=== PATIENT | male | born 1940 | race Caucasian/White ===

== ENCOUNTER 2018-07-02 01:44 | Inpatient (IN) | payer MEDICARE, OTHER ==
[2018-07-01 13:43] LABS: INR 1.02
--- NOTE | 2018-07-01 14:40 | LEVENE H&P ---
DATE OF ADMISSION: July 02, 2018 IDENTIFICATION/CHIEF COMPLAINT The patient is a 77-year-old gentleman with a chief complaint of left knee pain. HISTORY OF PRESENT ILLNESS The patient has a longstanding history of knee arthritis progressively painful and debilitating, refractory to conservative care. Surgery is indicated to relieve symptoms after failure of nonoperative measures. PAST MEDICAL HISTORY 1. Notable for hyper cholesterolemia. 2. Hypertension controlled on medication. 3. Remote history of myocardial infarction with coronary artery disease. PAST SURGICAL HISTORY 1. Notable for oral surgery. 2. Right shoulder. 3. Lumbar surgery. 4. Coronary stent. ALLERGIES MORPHINE that leads to a rash. CURRENT MEDICATIONS 1. Baby Aspirin 81 mg p.o. q day. 2. Crestor 40 mg p.o. q day. 3. Amlodipine. 4. Benazepril 10-41 p.o. q day. 5. Carvedilol 6.25 mg p.o. b.i.d. FAMILY HISTORY Non-contributory. SOCIAL HISTORY Notable for smoking a pack a day times 40 years. He quit in 2000. He occasionally chews tobacco. He drinks whiskey small bit per day but denies alcohol abuse. REVIEW OF SYSTEMS Noncontributory. PHYSICAL EXAMINATION GENERAL: This is a well-developed, well-nourished male who appears stated age. HEENT: Normocephalic, atraumatic. Extraocular muscles intact. NECK: Supple, non-tender. LUNGS: Clear to auscultation bilaterally. HEART: Regular rate and rhythm. ABDOMEN: Benign. ORTHOPEDIC EXAMINATION Left knee has crepitus and effusion present. Stiff at end range. Extensor function is intact, gross stability is good. RADIOGRAPHS Demonstrate endstage knee arthritis. ASSESSMENT Left knee degenerative joint disease progressively painful and debilitating, refractory to conservative care. PLAN Per patient request, we are going to proceed with total knee arthroplasty. The nature of the procedure, the risks, benefits, the anticipated rehabilitative course were reviewed. Risks include but are not limited to , major medical or anesthetic complication, infection, neurovascular injury, blood transfusion, stiffness, scarring, fracture, tendon rupture, instability, implant loosening, migration or failure, persistent or recurrent pain or symptoms, need for additional surgery and other unforeseen. He understands and wishes to proceed. A signed permit is placed in the chart. No guarantees are given or implied. [id number]
[2018-07-02] VITALS (16 sets, daily range): BP systolic 108–160; BP diastolic 66–93; Ht 170.2 cm; Wt 82.1 kg
[~2018-07-02] VITALS: Ht 170.2 cm; Wt 82.1 kg
[~2018-07-02 01:44] MED LIST: AMLO-122 PO; ASPI325T22 PO; CARV6.2574 PO; CHLO473M14 PO; NAPR220C12 PO; ROSU40TA18 PO; [UNRECOGNIZED DRUG - OTHER] PO; [UNRECOGNIZED DRUG - REMARK] PO
[2018-07-02] MEDS ORDERED: PROPOFOL EMUL(*) 10MG/ML 20 ML 20 ML ONE (09:59)
[2018-07-02] MEDS ORDERED: DEXAMETHASONE SOD 4 MG/ML VIAL ONE (09:59)
[2018-07-02] MEDS ORDERED: ONDANSETRON 4 MG/2 ML VIAL ONE (09:59)
[2018-07-02] MEDS ORDERED: LIDOCAINE MPF 1% 5 ML VIAL ONE (09:59)
[2018-07-02] MEDS ORDERED: KETAMINE HCL-NS 50 MG/5 ML SYR ONE (10:00)
[2018-07-02] MEDS ORDERED: MIDAZOLAM 2 MG/2 ML VIAL IVP PRN (10:00)
[2018-07-02] MEDS ORDERED: LIDOCAINE/SOD BICARB 8.4% SYR ID ONE (10:00)
[2018-07-02] MEDS ORDERED: CELECOXIB 200 MG CAP PO ONE (10:00)
[2018-07-02] MEDS ORDERED: ROPIVACAINE/EPI/CLONIDINE/KET 50 ML SYRINGE INJ ONE (10:00)
[2018-07-02] MEDS ORDERED: fentaNYL CITR 100 MCG/2 ML AMP ONE (10:00)
[2018-07-02] MEDS ORDERED: NORMOSOL R SOLN(*) 1000 ML BAG 1,000 ML IV PRN ×2 (10:00→14:20)
[2018-07-02] MEDS ORDERED: ACETAMINOPHEN 500 MG TAB PO ONE (10:00)
[2018-07-02] MEDS ORDERED: ceFAZolin(*) 2GM/D5W 50ML 50 ML IVPB ONE (10:00)
[2018-07-02] MEDS ORDERED: PREGABALIN 75 MG CAPSULE PO ONE (10:00)
[2018-07-02] MEDS ORDERED: TRANEXAMIC AC 1000 MG/10ML SDV 1,000 MG in DEXTROSE 5% 50 ML BAG 50 ML IV ONE (10:00)
[2018-07-02] MEDS ORDERED: FAMOTIDINE 20 MG TAB PO ONE (10:00)
[2018-07-02] MEDS ORDERED: VANCOMYCIN 1 GM VIAL ONE ×2 (11:56→13:39)
[2018-07-02] MEDS ORDERED: GLYCOPYRROLATE 0.2MG/ML 1 ML INJ ONE ×2 (13:01)
[2018-07-02] MEDS ORDERED: ePHEDrine 25 MG/5 ML DISP.SYR IVP ONE (13:01)
[2018-07-02] MEDS ORDERED: diphenhydrAMINE 50 MG/ML VIAL IVP PRN (14:20)
[2018-07-02] MEDS ORDERED: BENZOCAINE/MENTHOL 1 EACH LOZG PO PRN (14:20)
[2018-07-02] MEDS ORDERED: ACETAMINOPHEN 325 MG TAB PO PRN (14:20)
[2018-07-02] MEDS ORDERED: ZOLPIDEM TARTRATE 5 MG TAB PO PRN (14:20)
[2018-07-02] MEDS ORDERED: PROMETHAZINE 25 MG/ML 1 ML AMP IVP PRN (14:20)
[2018-07-02] MEDS ORDERED: FLUSH 10 ML SYR IVP PRN (14:20)
[2018-07-02] MEDS ORDERED: MAGNESIUM HYDROXIDE* 30ML UDCP PO PRN (14:20)
[2018-07-02] MEDS ORDERED: diphenhydrAMINE 25 MG CAP PO PRN (14:20)
[2018-07-02] MEDS ORDERED: BISACODYL 10 MG SUPP PR PRN (14:20)
--- NOTE | 2018-07-02 14:25 | OPERATIVE REPORT 1 ---
EVENT DATE: July 02, 2018 SURGEON: Sid yKle MD ANESTHESIOLOGIST: Luc Moulton MD ANESTHESIA: General plus spinal. INTERNAL CONTROLS ANALYST: Patricio Freedman PA-C PREOPERATIVE DIAGNOSIS Left knee degenerative joint disease. POSTOPERATIVE DIAGNOSIS Left knee degenerative joint disease. PROCEDURE PERFORMED Left total knee arthroplasty. ESTIMATED BLOOD LOSS Minimal. DRAINS None. SPECIMENS None. COMPLICATIONS None apparent. TOURNIQUET TIME 47 minutes. IMPLANTS USED Andi Triathlon Knee system, 4 left PS femur, 5 standard tibial baseplate, 36 mm universal symmetric all polyethylene patella button, 13 mm PS tibial tray liner, polyethylene X3. INDICATION Hyun is a 77-year-old gentleman with intractable left knee pain and disability, refractory to conservative care. Surgery is indicated to relieve symptoms after failure of nonoperative measures. DESCRIPTION OF PROCEDURE The patient was taken to the operating room and placed supine on the operating table. A spinal block was administered by the anesthesiologist. General anesthesia was induced. Standard antibiotics were administered IV along with TXA. The left lower extremity was prepped and draped in the usual sterile fashion for orthopedic surgery. The limb was exsanguinated with an Esmarch bandage. The tourniquet was inflated to 250 mmHg. A midline longitudinal incision was made and carried down through the skin and subcutaneous tissue to the extensor mechanism. A full-thickness flap was developed far enough medially to allow medial parapatellar arthrotomy to be performed. The patella was everted. The knee was brought into the flexed position. The fat pad, anterior horns of the menisci and the cruciate ligaments were debrided. Subperiosteal medial release is initiated in a titrated fashion to start to balance the knee. A step drill was used to enter the distal femur. A 10-inch long alignment guide was used to engage the isthmus. The cut was set for 5 degrees valgus relative to anatomic axis. A 10 mm resection block was applied, pinned and distal femoral cut was made with an oscillating saw. The AP sizing guide was applied to this cut and positioned for 3 degrees of external rotation over the posterior condyles. A size 4 was optimal without risk of notching. The four-in-one cutting block was applied. Anterior, posterior, posterior chamfer and anterior chamfer cuts were made respectively. A PS block was applied and centered mediolateral and the bone was removed the box. The trial femur has nice [id number] fit. Attention was turned to the tibial preparation. The extramedullary guide was applied and positioned for varus, valgus, posterior slope and rotation. Both sides were severe worn towards the posterior aspect and so the depth of resection is set by experience and estimating where this exit on the medial side. I recognized the end there is severe posteromedial erosion. The cut does not need to be below this level. Block is pinned. Extramedullary alignment check is made and cuts made with an oscillating saw. Peripheral osteophyte removal along with posterior osteophytes off the back of the femur with a bit of additional release, gaps were balanced and symmetric. The size 5 tibial baseplate provides optimal bony coverage without soft tissue overhang. This was inserted along with a trial liner and trial femur. The knee was brought to full extension. The patella is taken from the starting thickness of 26 to a residual of 14 with a patellar clamp and oscillating saw. The 36 provides optimal bony coverage without soft tissue overhang. The lug holes were drilled. The patella tracts nicely with a no-touch technique. Final tibial preparation consists of insuring appropriate rotational and translations position of the component. The boss is reamed, the fin is punched. Surfaces were lavaged. Meticulous hemostasis is assured. A mix of polymethylmethacrylate was made and the components were cemented in a single stage. After the cement was fully polymerized, the tourniquet was deflated and hemostasis was assured. Hemostasis assured again. The 13 PS tibial tray liner fills up the gap ideally without allowing the knee to drop to full extension without hyperextension, providing optimal soft tissue tension and stability. The tray was lavaged and dried and the actual liner was locked into the baseline. Arthrotomy was closed in flexion with #2 Ethibond suture, subcutaneous tissue with 3-0 Vicryl and the skin with surgical mali. Xeroform was applied followed by a dry, sterile dressing and a compression wrap. The patient was awakened from the anesthesia and taken to the recovery room in stable condition, having tolerated the procedure well. Plan is for standard TKA rehab protocol. [facility]ITAL[facility]akub
--- NOTE | 2018-07-02 15:54 | RADIOLOGY IMAGING REPORT ---
[place] [facility] [place] NAME: Hyun Noguera : 1940 MR: [id number] V: [id number] EXAM DATE: ORDERING PHYSICIAN: ANRINDER PABLO TECHNOLOGIST: Location: [facility] Patient: Hyun Noguera : 1940 Visit/Account:[id number] Date of Sevice: 07/02/2018 Exam type: KNEE LIMITED LEFT History: POST-OP PLACEMENT Comparison: None. Findings: Two views the left knee demonstrate a total left knee arthroplasty in good anatomic alignment. Soft tissue gas and skin mali project over the anterior aspect this postoperative knee. Incidentally n oted are vascular calcifications. IMPRESSION: 1. As above Report Dictated By: Katy Sadler MD at 07/02/2018 3:49 PM Report E-Signed By: Katy Sadler MD at 07/02/2018 3:50 PM WSN:[id number]
[2018-07-02] MEDS: APAP/HYDROCODONE 325/7.5 TAB PO PRN ×2 (16:14→21:09)
--- NOTE | 2018-07-02 16:56 | Hospitalist Consultation ---
History of Present Illness Requesting Physician Dr. Kyle Reason for Consult Medical Management Chief Complaint s/p left knee replacement History of Present Illness He was admitted s/p left knee replacement. It is reported the surgery went well and without complication. History Problems: (1) Hyperlipidemia Status: Chronic (2) Hypertension Status: Chronic (3) CAD (coronary artery disease) Status: Chronic Home Meds Reported Medications Naproxen Sodium (ALEVE) 220 Mg Capsule, 220 MG PO TID, CAPSULE 06/25/18 [Stemcell Support ] No Conflict Check, PO QDAY 06/25/18 [Heal/Soothe] No Conflict Check, PO QDAY 06/25/18 Chlorhexidine Gluconate (Peridex) 0.12 % Mouthwash, 0.12 PO QDAY 06/25/18 Aspirin (ECOTRIN) 325 Mg Tablet.dr, 81 MG PO QDAY 06/25/18 Rosuvastatin Calcium (CRESTOR) 40 Mg Tablet, 40 MG PO HS 06/25/18 Amlodipine Besylate/Benazepril (AMLODIPINE-BENAZEPRIL 10-40 MG) 1 Each Capsule, 1 EACH PO QDAY, CAPSULE 06/25/18 Carvedilol (COREG) 6.25 Mg Tablet, 6.25 MG PO BID, #10 TAB 06/25/18 Allergies: Coded Allergies: morphine (Verified Allergy, Mild, RASH , 06/25/18) Smoking Status: Former Smoker When Quit Tobacco?: 2000 Caffeine Intake: Coffee Caffeine/Cups Per Day: 3 CUPS/DAY Alcohol Used: Liquor Social Drug Use: Never Review of Systems All Systems Reviewed/Normal: Yes, Except as Noted Exam Vital Signs Vital Signs Date Time Temp Pulse Resp B/P (MAP) Pulse Ox O2 Delivery O2 Flow Rate FiO2 07/02/18 16:15 60 134/93 (107) 89 Nasal Cannula 4.0 07/02/18 15:45 97.6 16 General Appearance: Alert, Awake, No Acute Distress, Afebrile Neuro: No Gross deficits Cardiovascular: Regular Rate and Rhythm Respiratory: No Respiratory Distress, Clear to Auscultation GI: Abd Soft and Non-Tender Psych: Alert & Oriented X3, Appropriate Mood & Affect Assessment and Plan Problems: (1) Status post left knee replacement Status: Acute Assessment & Plan: Followed by Dr. Kyle. He will be placed on Aspirin for DVT prophylaxis. He has no history of DVT or PE. (2) Hypertension Status: Chronic Assessment & Plan: He is on chronic treatment with Amlodipine/Benazepril. This has been restarted with hold parameters. (3) Hyperlipidemia Status: Chronic Assessment & Plan: He is on chronic treatment with Rosuvastatin. Continue. (4) CAD (coronary artery disease) Status: Chronic Assessment & Plan: He is on chronic treatment with aspirin and Carvedilol. Continue. Venous Thromboembolism Antithrombotics Is Pt On Any Antithrombotics?: No Problem Qualifiers (1) Hypertension: Hypertension type: essential hypertension Qualified Codes: I10 - Essential (primary) hypertension DORIS ROMEROP Jul 02, 2018 16:56
[2018-07-02] MEDS: CELECOXIB 200 MG CAP PO SCH (17:27)
--- NOTE | 2018-07-02 18:25 | NUR ---
Physical Therapy Impression PT eval completed. Pt amb to/from BR with FWW and CGA Physical Therapy Goals 1. Pt to be Mod I/SBA for bed mob 2. Pt to be Mod I/SBA for transfers 3. Pt to amb 100' with 4WW 4. Pt to yanet up/down platform step with least restrictive device. Patient's Goals
[2018-07-02] MEDS: NS(*) 0.9% 250 ML BAG 250 ML IV SCH (19:40)
[2018-07-02] MEDS: ceFAZolin(*) 1 GM VIAL 1 GM in NS(*) 0.9% 100 ML ADDVANT BAG 100 ML IVPB SCH (19:41)
[2018-07-02] MEDS: CARVEDILOL 6.25 MG TAB PO SCH (21:09)
[2018-07-02] MEDS: ROSUVASTATIN CALCIUM 10 MG TAB PO SCH (21:09)
[2018-07-02] MEDS: DIAZEPAM 5 MG TAB PO PRN (23:25)
[2018-07-03 03:52] VITALS: BP 139/77
[2018-07-03] MEDS: APAP/HYDROCODONE 325/7.5 TAB PO PRN ×4 (04:02→19:49)
[2018-07-03] MEDS: ceFAZolin(*) 1 GM VIAL 1 GM in NS(*) 0.9% 100 ML ADDVANT BAG 100 ML IVPB SCH ×2 (04:03→12:14)
[2018-07-03 07:30] VITALS: BP 129/71
[2018-07-03] MEDS: CELECOXIB 200 MG CAP PO SCH ×2 (08:57→17:21)
[2018-07-03] MEDS: ASPIRIN 325 MG TAB PO SCH (08:57)
[2018-07-03] MEDS: CARVEDILOL 6.25 MG TAB PO SCH ×2 (08:57→20:47)
[2018-07-03] MEDS: amLODIPine BESYL(*) 5 MG TAB PO SCH (09:00)
[2018-07-03] MEDS: BENAZEPRIL HCL 20 MG TAB PO SCH (09:00)
--- NOTE | 2018-07-03 10:51 | NUR ---
Physical Therapy Impression Pt tolerated ambulation with FWW in hallway x 150' and one sitting rest break. Pt states that he anticipates using his 4WW at home and would like to practice with that this afternoon. Reviewed use of CPM and self progression with CG education as well. Physical Therapy Goals 1. Pt to be Mod I/SBA for bed mob 2. Pt to be Mod I/SBA for transfers 3. Pt to amb 100' with 4WW 4. Pt to yanet up/down platform step with least restrictive device. Patient's Goals
--- NOTE | 2018-07-03 11:02 | Hospitalist Progress Note ---
Subjective Progress Notes Subjective He has no complaints this morning. He had no acute events overnight. Patient Complains of: Cardiovascular: No: Chest Pain Respiratory: No: Shortness of Breath Physical Exam Vital Signs Date Time Temp Pulse Resp B/P (MAP) Pulse Ox O2 Delivery O2 Flow Rate FiO2 07/03/18 09:00 91 Nasal Cannula 3.0 07/03/18 07:30 97.8 60 16 129/71 (90) Intake and Output 07/03/18 07:00 Intake Total 3340 ml Balance 3340 ml Intake Oral 1240 ml IV Total 2100 ml # Voids 2 General Appearance: Alert, Awake, No Acute Distress, Afebrile Neuro: No Gross deficits Cardiovascular: Regular Rate and Rhythm Respiratory: No Respiratory Distress, Clear to Auscultation Psych: Alert & Oriented X3, Appropriate Mood & Affect Assessment and Plan Problems: (1) Status post left knee replacement Status: Acute Assessment & Plan: Followed by Dr. Kyle. He will be placed on Aspirin for DVT prophylaxis. He has no history of DVT or PE. (2) Hypertension Status: Chronic Assessment & Plan: He is on chronic treatment with Amlodipine/Benazepril. This has been restarted with hold parameters. (3) Hyperlipidemia Status: Chronic Assessment & Plan: He is on chronic treatment with Rosuvastatin. Continue. (4) CAD (coronary artery disease) Status: Chronic Assessment & Plan: He is on chronic treatment with aspirin and Carvedilol. Continue. Exam Sepsis Risk: No Definite Risk Problem Qualifiers (1) Hypertension: Hypertension type: essential hypertension Qualified Codes: I10 - Essential (primary) hypertension DORIS ROMERO Jul 03, 2018 11:02
[2018-07-03 11:18] VITALS: BP 97/61
[2018-07-03] MEDS: DIAZEPAM 5 MG TAB PO PRN ×2 (12:28→19:49)
[2018-07-03 15:46] VITALS: BP 111/54
[2018-07-03] MEDS: NS(*) 0.9% 250 ML BAG 250 ML IV SCH (17:22)
[2018-07-03 18:51] VITALS: BP 142/72
[2018-07-03] MEDS: ROSUVASTATIN CALCIUM 10 MG TAB PO SCH (20:47)
[2018-07-03 23:05] VITALS: BP 134/74
[2018-07-04 04:08] VITALS: BP 146/71
[2018-07-04] MEDS: APAP/HYDROCODONE 325/7.5 TAB PO PRN ×2 (04:14→08:18)
[2018-07-04 06:48] VITALS: BP 140/75
[2018-07-04] MEDS: BENAZEPRIL HCL 20 MG TAB PO SCH (08:07)
[2018-07-04] MEDS: CARVEDILOL 6.25 MG TAB PO SCH (08:17)
[2018-07-04] MEDS: amLODIPine BESYL(*) 5 MG TAB PO SCH (08:17)
[2018-07-04] MEDS: ASPIRIN 325 MG TAB PO SCH (08:17)
[2018-07-04] MEDS: CELECOXIB 200 MG CAP PO SCH (08:17)
[2018-07-04] MEDS ORDERED: HYDR-654 PO (08:25)
[2018-07-04] MEDS ORDERED: DIA5 PO (08:26)
[2018-07-04 10:36] VITALS: BP 138/86
[2018-07-04] MEDS: DIAZEPAM 5 MG TAB PO PRN (10:40)
--- NOTE | 2018-07-04 12:13 | Hospitalist Progress Note ---
Subjective Progress Notes Subjective He was admitted after knee replacement. He had no complaints this morning. He had no acute events overnight. Patient Complains of: Cardiovascular: No: Chest Pain Respiratory: No: Shortness of Breath Physical Exam Vital Signs Date Time Temp Pulse Resp B/P (MAP) Pulse Ox O2 Delivery O2 Flow Rate FiO2 07/04/18 10:36 97.8 81 16 138/86 (103) 92 3.0 07/04/18 07:30 Nasal Cannula Intake and Output 07/04/18 00:00 Intake Total 1400 ml Balance 1400 ml Intake Oral 1300 ml IV Total 100 ml # Voids 5 General Appearance: Alert, Awake, No Acute Distress, Afebrile Cardiovascular: Regular Rate and Rhythm Respiratory: No Respiratory Distress, Clear to Auscultation Psych: Alert & Oriented X3, Appropriate Mood & Affect Assessment and Plan Problems: (1) Status post left knee replacement Status: Acute Assessment & Plan: Followed by Dr. Kyle. He will be placed on Aspirin for DVT prophylaxis. He has no history of DVT or PE. (2) Hypertension Status: Chronic Assessment & Plan: He is on chronic treatment with Amlodipine/Benazepril. This was restarted with hold parameters. (3) Hyperlipidemia Status: Chronic Assessment & Plan: He is on chronic treatment with Rosuvastatin. Continue. (4) CAD (coronary artery disease) Status: Chronic Assessment & Plan: He is on chronic treatment with aspirin and Carvedilol. Continue. Exam Sepsis Risk: No Definite Risk Problem Qualifiers (1) Hypertension: Hypertension type: essential hypertension Qualified Codes: I10 - Essential (primary) hypertension DORIS ROMERO Jul 04, 2018 12:13
--- NOTE | 2018-07-04 14:44 | NUR ---
Physical Therapy Impression Pt is doing well and is safe to D/C home with OP PT and assist from family. Pt completed two steps with R handrail to simulate entry into home. Pt's daughter very attentive and inquiring appropriately. Educated pt's daughter on use of cryo-cuff. Goals met. Physical Therapy Goals Patient's Goals
== END 2018-07-04 10:50 | disposition home or self-care (01) | DRG 470 ==
LOC: OR 01:44 → MED 15:40 → OBSVTOIN 07-03
PROVIDERS: ADMIT Orthopaedic Surgery; ATTEND Orthopaedic Surgery
PROC: 0SRD0J9 Replacement of Left Knee Joint with Synthetic Substitute, Cemented, Open Approach (ICD-10-PCS; principal; 2018-07-02 11:00)
DX: M17.12 Unilateral primary osteoarthritis, left knee (principal); M25.762 Osteophyte, left knee; I10 Essential (primary) hypertension; I25.10 Atherosclerotic heart disease of native coronary artery without angina pectoris; I25.2 Old myocardial infarction; E78.5 Hyperlipidemia, unspecified; Z95.5 Presence of coronary angioplasty implant and graft; Z88.5 Allergy status to narcotic agent; Z87.891 Personal history of nicotine dependence
CPT/HCPCS: 36415; 85610; 86850; 86900; 86901; 97161; C1713; C1776; G0378; J0690; J1100; J2001; J2250; J2405; J2704; J3010; J3370; J3490; J7050; J7060